=== PATIENT | female | born 1930 | race Caucasian/White ===

== ENCOUNTER 2018-05-15 18:33 | Inpatient (IN) ==
[2018-05-15] MEDS ORDERED: LACTATED RINGERS 500 ML IV ONE (19:12)
[2018-05-15 19:43] LABS: Basophils % 0.2 % (0.0-0.8); Eosinophils # 0.1 10*3/uL (0.0-0.87); Eosinophils % 0.8 % (0.00-10.9); Hemoglobin 14.2 GM/DL (12.0-16.0); Immature Granulocytes % 0.3 %; Immature Granulocytes Absolute 0.03 #; Lymphocytes # 1.2 10*3/uL (1.4-4.0); Lymphocytes % 11.5 % (21.3-54.2); Mean Corpuscular HGB Conc 30.9 GM/DL (32-36); Mean Corpuscular Hemoglobin 32 PG (27-34); Mean Corpuscular Volume 102.9 FL (87-102); Mean Platelet Volume 11.8 FL (9.6-12.0); Monocytes # 0.4 10*3/uL (0.11-0.8); Monocytes % 4.2 % (1.7-12.7); Neutrophils # 8.6 10*3/uL (1.4-7.4); Red Blood Count 4.47 MC/CUMM (3.8-5.5); Red Cell Distribution Width 14.6 % (9.3-17.3); White Blood Count 10.4 T/CUMM (4-12)
[2018-05-15 19:45] LABS: Platelet Count 93 T/CUMM (130-400)
[2018-05-15 19:53] LABS: INR 1.1; PT Patient Result 11.4 SECS; Partial Thromboplastin Time 25.9 SECS (0-40)
[2018-05-15 20:08] LABS: Albumin 2.4 G/DL (3.4-5.0); Calcium 8.6 MG/DL (8.5-10.1); Osmolality,Calculated 345.2 MOS/KG (273-304); Potassium 3.2 MMOL/L (3.5-5.1); Total Protein 5.8 G/DL (6.4-8.3)
[2018-05-15 20:12] LABS: Lactic Acid 2.7 MMOL/L (0.4-2.0); Troponin I Only 0.509 NG/ML (0.00-0.045)
[2018-05-15 20:13] LABS: Apearance,Urine CLOUDY (Clear); Bacteria,Urine Many /HPF (Few); Bilirubin,Urine Negative (Negative); Blood, Urine Moderate mg/dL (Negative); Glucose,Urine (UA) Negative (Negative); Ketones,Urine Negative (Negative); Mucus,Urine Occasional /LPF (Occasional); Nitrite,Urine Negative (Negative); Protein,Urine 30 MG/DL; RBC,Urine 27 /HPF (0-4); Squamous Epithelial Cell,Urine Occasional /HPF (0-10); Urine Color Yellow (Yellow); Urine Specific Gravity 1.015 (1.001-1.035); WBC,Urine 461 /HPF (0-6)
[2018-05-15] MEDS ORDERED: LACTATED RINGERS 1,000 ML IV ONE (20:32)
[2018-05-15] MEDS ORDERED: cefTRIAXone 2,000 MG in SODIUM CHLORIDE 0.9% 100 ML IV STA (20:35)
[2018-05-15 20:36] LABS: Band Neutrophils 8 % (0-10); Lymphocytes 15 % (20-55); Segmented Neutrophils 77 % (50-85); Total Cells Counted 100
[2018-05-15 20:38] LABS: Platelet Estimate Decreased; Polychromasia Few
[2018-05-15] MEDS ORDERED: cefTRIAXone 2,000 MG in SYRINGE 1 EACH IV SCH (23:45)
[2018-05-16] MEDS: POTASSIUM CHLORIDE 20 MEQ/15 ML UDCUP PER TUBE PRN ×2 (04:30→06:39)
[2018-05-16] MEDS: DEXTROSE 5% NACL 0.45% 1,000 ML IV SCH ×3 (04:52→22:13)
[2018-05-16 06:22] LABS: Basophils % 0.1 % (0.0-0.8); Eosinophils # 0.1 10*3/uL (0.0-0.87); Eosinophils % 1.5 % (0.00-10.9); Hematocrit 37.6 VOL% (35.7-47.0); Immature Granulocytes % 0.5 %; Immature Granulocytes Absolute 0.04 #; Lymphocytes % 12.8 % (21.3-54.2); Mean Corpuscular HGB Conc 31.6 GM/DL (32-36); Mean Corpuscular Hemoglobin 31 PG (27-34); Mean Corpuscular Volume 99.2 FL (87-102); Mean Platelet Volume 11.9 FL (9.6-12.0); Monocytes # 0.3 10*3/uL (0.11-0.8); Neutrophils % 81.1 % (38.7-73.9); Red Blood Count 3.79 MC/CUMM (3.8-5.5); Red Cell Distribution Width 14.6 % (9.3-17.3); White Blood Count 7.4 T/CUMM (4-12)
[2018-05-16 06:38] LABS: Hemoglobin 11.9 GM/DL (12.0-16.0)
[2018-05-16 06:39] LABS: Platelet Count 74 T/CUMM (130-400)
[2018-05-16 06:47] LABS: Calcium 8.4 MG/DL (8.5-10.1); Osmolality,Calculated 333.8 MOS/KG (273-304); Potassium 3.6 MMOL/L (3.5-5.1)
[2018-05-16 06:52] LABS: Band Neutrophils 5 % (0-10); Lymphocytes 11 % (20-55); Segmented Neutrophils 81 % (50-85); Total Cells Counted 100
[2018-05-16 06:53] LABS: Hypochromasia Slight; Platelet Estimate Decreased
[2018-05-16] MEDS: ENOXAPARIN 40 MG/0.4 ML SYRINGE SUBCUT SCH (12:11)
[2018-05-16] MEDS: cefTRIAXone 2,000 MG in SYRINGE 1 EACH IV SCH (22:18)
[2018-05-17] MEDS: DEXTROSE 5% NACL 0.45% 1,000 ML IV SCH (05:53)
[2018-05-17 06:22] LABS: Basophils % 0.2 % (0.0-0.8); Eosinophils # 0.2 10*3/uL (0.0-0.87); Eosinophils % 4.1 % (0.00-10.9); Hematocrit 33.5 VOL% (35.7-47.0); Hemoglobin 10.5 GM/DL (12.0-16.0); Immature Granulocytes % 0.4 %; Immature Granulocytes Absolute 0.02 #; Lymphocytes # 0.7 10*3/uL (1.4-4.0); Lymphocytes % 15.4 % (21.3-54.2); Mean Corpuscular HGB Conc 31.3 GM/DL (32-36); Mean Corpuscular Hemoglobin 31 PG (27-34); Mean Corpuscular Volume 100.3 FL (87-102); Mean Platelet Volume 11.8 FL (9.6-12.0); Monocytes # 0.2 10*3/uL (0.11-0.8); Monocytes % 4.3 % (1.7-12.7); Neutrophils # 3.6 10*3/uL (1.4-7.4); Neutrophils % 75.6 % (38.7-73.9); Platelet Count 67 T/CUMM (130-400); Red Blood Count 3.34 MC/CUMM (3.8-5.5); Red Cell Distribution Width 14.4 % (9.3-17.3)
[2018-05-17 06:25] LABS: White Blood Count 4.7 T/CUMM (4-12)
[2018-05-17 06:36] LABS: Calcium 8.3 MG/DL (8.5-10.1); Osmolality,Calculated 322.3 MOS/KG (273-304); Potassium 3.1 MMOL/L (3.5-5.1)
[2018-05-17 06:42] LABS: Band Neutrophils 6 % (0-10); Eosinophils 1 % (0-10); Lymphocytes 19 % (20-55); Segmented Neutrophils 73 % (50-85); Total Cells Counted 100
[2018-05-17 06:43] LABS: Hypochromasia Slight; Macrocytosis Slight; Platelet Estimate Decreased
[2018-05-17] MEDS: POTASSIUM CHLORIDE 20 MEQ/15 ML UDCUP PER TUBE SCH ×4 (09:03→21:09)
[2018-05-17] MEDS: ENOXAPARIN 40 MG/0.4 ML SYRINGE SUBCUT SCH (09:03)
[2018-05-17] MEDS: PANTOPRAZOLE 40 MG VIAL IV SCH (16:27)
[2018-05-17] MEDS: cefTRIAXone 2,000 MG in SYRINGE 1 EACH IV SCH (21:10)
[2018-05-18] MEDS: POTASSIUM CHLORIDE 20 MEQ/15 ML UDCUP PER TUBE SCH (01:21)
[2018-05-18] MEDS ORDERED: POTASSIUM CHLORIDE 20 MEQ/15 ML UDCUP PER TUBE SCH (01:30)
[2018-05-18 05:22] LABS: Basophils % 0.2 % (0.0-0.8); Eosinophils # 0.2 10*3/uL (0.0-0.87); Eosinophils % 3.9 % (0.00-10.9); Hematocrit 34.4 VOL% (35.7-47.0); Hemoglobin 10.7 GM/DL (12.0-16.0); Immature Granulocytes % 0.5 %; Immature Granulocytes Absolute 0.02 #; Lymphocytes # 0.9 10*3/uL (1.4-4.0); Lymphocytes % 19.6 % (21.3-54.2); Mean Corpuscular HGB Conc 31.1 GM/DL (32-36); Mean Corpuscular Hemoglobin 32 PG (27-34); Mean Corpuscular Volume 101.2 FL (87-102); Mean Platelet Volume 12.3 FL (9.6-12.0); Monocytes # 0.3 10*3/uL (0.11-0.8); Monocytes % 6.8 % (1.7-12.7); White Blood Count 4.4 T/CUMM (4-12)
[2018-05-18 05:26] LABS: Calcium 8.1 MG/DL (8.5-10.1); Potassium 3.9 MMOL/L (3.5-5.1)
[2018-05-18 05:38] LABS: Platelet Count 72 T/CUMM (130-400)
[2018-05-18 05:45] LABS: Eosinophils 5 % (0-10); Hypochromasia Slight; Lymphocytes 18 % (20-55); Nucleated Red Blood Cells 1 (0-5); Platelet Estimate Decreased; Segmented Neutrophils 69 % (50-85); Total Cells Counted 100
[2018-05-18 05:46] LABS: Ovalocytes Slight
[2018-05-18 05:47] LABS: Macrocytosis Slight
[2018-05-18] MEDS: DEXTROSE 5% NACL 0.45% 1,000 ML IV SCH ×2 (09:38→19:33)
[2018-05-18] MEDS: ENOXAPARIN 40 MG/0.4 ML SYRINGE SUBCUT SCH (09:39)
[2018-05-18] MEDS: PANTOPRAZOLE 40 MG VIAL IV SCH (09:39)
[2018-05-18] MEDS: cefTRIAXone 2,000 MG in SYRINGE 1 EACH IV SCH (20:10)
[2018-05-19 07:16] LABS: Basophils % 0.2 % (0.0-0.8); Eosinophils # 0.1 10*3/uL (0.0-0.87); Eosinophils % 2.8 % (0.00-10.9); Hematocrit 32.2 VOL% (35.7-47.0); Hemoglobin 10.3 GM/DL (12.0-16.0); Immature Granulocytes % 0.6 %; Immature Granulocytes Absolute 0.03 #; Lymphocytes # 0.9 10*3/uL (1.4-4.0); Lymphocytes % 18.3 % (21.3-54.2); Mean Corpuscular Hemoglobin 31 PG (27-34); Mean Corpuscular Volume 98.2 FL (87-102); Mean Platelet Volume 11.8 FL (9.6-12.0); Monocytes # 0.4 10*3/uL (0.11-0.8); Neutrophils # 3.6 10*3/uL (1.4-7.4); Neutrophils % 71.1 % (38.7-73.9); Red Blood Count 3.28 MC/CUMM (3.8-5.5); Red Cell Distribution Width 13.5 % (9.3-17.3)
[2018-05-19 07:21] LABS: Platelet Count 82 T/CUMM (130-400)
[2018-05-19 07:37] LABS: Macrocytosis Slight; Platelet Estimate Decreased
[2018-05-19 07:47] LABS: Calcium 8.1 MG/DL (8.5-10.1); Osmolality,Calculated 310.2 MOS/KG (273-304); Potassium 3.5 MMOL/L (3.5-5.1); Prealbumin 7.4 MG/DL (20-40)
[2018-05-19] MEDS: DEXTROSE 5% NACL 0.45% 1,000 ML IV SCH ×2 (09:23→20:04)
[2018-05-19] MEDS: ENOXAPARIN 40 MG/0.4 ML SYRINGE SUBCUT SCH (09:23)
[2018-05-19] MEDS: PANTOPRAZOLE 40 MG VIAL IV SCH (09:24)
[2018-05-19 18:58] LABS: Calcium 7.9 MG/DL (8.5-10.1); Osmolality,Calculated 302.9 MOS/KG (273-304); Potassium 3.4 MMOL/L (3.5-5.1)
[2018-05-19 19:36] LABS: Basophils % 0.2 % (0.0-0.8); Eosinophils # 0.1 10*3/uL (0.0-0.87); Eosinophils % 1.7 % (0.00-10.9); Hematocrit 31.2 VOL% (35.7-47.0); Hemoglobin 10.4 GM/DL (12.0-16.0); Immature Granulocytes % 1.1 %; Immature Granulocytes Absolute 0.05 #; Lymphocytes # 0.8 10*3/uL (1.4-4.0); Lymphocytes % 15.9 % (21.3-54.2); Mean Corpuscular HGB Conc 33.3 GM/DL (32-36); Mean Corpuscular Hemoglobin 31 PG (27-34); Mean Corpuscular Volume 93.7 FL (87-102); Mean Platelet Volume 12.1 FL (9.6-12.0); Monocytes # 0.3 10*3/uL (0.11-0.8); Monocytes % 5.9 % (1.7-12.7); Neutrophils # 3.5 10*3/uL (1.4-7.4); Neutrophils % 75.2 % (38.7-73.9); Platelet Count 83 T/CUMM (130-400); Red Blood Count 3.33 MC/CUMM (3.8-5.5); Red Cell Distribution Width 13.4 % (9.3-17.3); White Blood Count 4.7 T/CUMM (4-12)
[2018-05-19] MEDS: cefTRIAXone 2,000 MG in SYRINGE 1 EACH IV SCH (20:04)
[2018-05-20 06:36] LABS: Basophils % 0.4 % (0.0-0.8); Eosinophils # 0.1 10*3/uL (0.0-0.87); Eosinophils % 1.6 % (0.00-10.9); Hematocrit 32.5 VOL% (35.7-47.0); Hemoglobin 10.6 GM/DL (12.0-16.0); Immature Granulocytes % 1.2 %; Immature Granulocytes Absolute 0.06 #; Lymphocytes # 0.9 10*3/uL (1.4-4.0); Lymphocytes % 18.4 % (21.3-54.2); Mean Corpuscular HGB Conc 32.6 GM/DL (32-36); Mean Corpuscular Hemoglobin 31 PG (27-34); Mean Corpuscular Volume 95.9 FL (87-102); Mean Platelet Volume 11.7 FL (9.6-12.0); Monocytes # 0.3 10*3/uL (0.11-0.8); Monocytes % 5.9 % (1.7-12.7); Neutrophils # 3.7 10*3/uL (1.4-7.4); Neutrophils % 72.5 % (38.7-73.9); Red Blood Count 3.39 MC/CUMM (3.8-5.5); Red Cell Distribution Width 13.4 % (9.3-17.3); White Blood Count 5.1 T/CUMM (4-12)
[2018-05-20 06:39] LABS: Platelet Count 88 T/CUMM (130-400)
[2018-05-20 06:58] LABS: Band Neutrophils 1 % (0-10); Eosinophils 2 % (0-10); Lymphocytes 19 % (20-55); Segmented Neutrophils 76 % (50-85); Total Cells Counted 100
[2018-05-20 06:58] LABS: Prealbumin 8.8 MG/DL (20-40)
[2018-05-20 06:59] LABS: Macrocytosis Slight; Platelet Estimate Decreased; Polychromasia Slight
[2018-05-20 07:10] LABS: Calcium 7.8 MG/DL (8.5-10.1); Potassium 3.2 MMOL/L (3.5-5.1)
[2018-05-20] MEDS: ENOXAPARIN 40 MG/0.4 ML SYRINGE SUBCUT SCH (10:54)
[2018-05-20] MEDS: DEXTROSE 5% NACL 0.45% 1,000 ML IV SCH (14:01)
[2018-05-20] MEDS: PANTOPRAZOLE 40 MG VIAL IV SCH (14:02)
[2018-05-20] MEDS: cefTAZidime 1,000 MG in SYRINGE 1 EACH IV SCH (15:30)
[2018-05-20] MEDS: POTASSIUM CHLORIDE RIDER 10 MEQ in PREMIX 1 EACH IV SCH ×4 (15:35→20:19)
[2018-05-21] MEDS: cefTAZidime 1,000 MG in SYRINGE 1 EACH IV SCH ×2 (02:21→15:30)
[2018-05-21 07:09] LABS: Basophils % 0.4 % (0.0-0.8); Eosinophils # 0.1 10*3/uL (0.0-0.87); Eosinophils % 2.1 % (0.00-10.9); Hematocrit 30.1 VOL% (35.7-47.0); Hemoglobin 9.7 GM/DL (12.0-16.0); Immature Granulocytes % 1.9 %; Lymphocytes # 0.9 10*3/uL (1.4-4.0); Lymphocytes % 17.5 % (21.3-54.2); Mean Corpuscular HGB Conc 32.2 GM/DL (32-36); Mean Corpuscular Hemoglobin 31 PG (27-34); Mean Corpuscular Volume 95.9 FL (87-102); Mean Platelet Volume 11.8 FL (9.6-12.0); Monocytes # 0.4 10*3/uL (0.11-0.8); Monocytes % 7.6 % (1.7-12.7); Neutrophils # 3.7 10*3/uL (1.4-7.4); Neutrophils % 70.5 % (38.7-73.9); Platelet Count 101 T/CUMM (130-400); Red Blood Count 3.14 MC/CUMM (3.8-5.5); Red Cell Distribution Width 13.7 % (9.3-17.3); White Blood Count 5.3 T/CUMM (4-12)
[2018-05-21 07:33] LABS: Macrocytosis Slight; Platelet Estimate Decreased
[2018-05-21 07:38] LABS: Calcium 8.1 MG/DL (8.5-10.1); Osmolality,Calculated 290.4 MOS/KG (273-304); Potassium 3.6 MMOL/L (3.5-5.1)
[2018-05-21 07:52] LABS: Calcium 7.9 MG/DL (8.5-10.1); Osmolality,Calculated 288.6 MOS/KG (273-304); Potassium 3.6 MMOL/L (3.5-5.1); Prealbumin 9.3 MG/DL (20-40)
[2018-05-21] MEDS: DEXTROSE 5% NACL 0.45% 1,000 ML IV SCH (09:35)
[2018-05-21] MEDS: PANTOPRAZOLE 40 MG VIAL IV SCH (09:57)
[2018-05-21] MEDS: CITALOPRAM 20 MG TABLET PO SCH (12:06)
[2018-05-21] MEDS: TAMOXIFEN 10 MG TABLET PO SCH (12:07)
[2018-05-21] MEDS: ZINC SULFATE 220 MG CAPSULE PO SCH (12:07)
[2018-05-21] MEDS: ASCORBIC ACID 500 MG TABLET PO SCH (12:07)
[2018-05-21] MEDS: MULTIVITAMIN (CENTRUM) TABLET PO SCH (12:08)
[2018-05-22] MEDS: cefTAZidime 1,000 MG in SYRINGE 1 EACH IV SCH ×2 (02:36→15:05)
[2018-05-22 07:31] LABS: Calcium 8.4 MG/DL (8.5-10.1); Osmolality,Calculated 277.4 MOS/KG (273-304); Potassium 3.6 MMOL/L (3.5-5.1)
[2018-05-22] MEDS: ASCORBIC ACID 500 MG TABLET PO SCH (10:44)
[2018-05-22] MEDS: MULTIVITAMIN (CENTRUM) TABLET PO SCH (10:45)
[2018-05-22] MEDS: CITALOPRAM 20 MG TABLET PO SCH (10:45)
[2018-05-22] MEDS: ZINC SULFATE 220 MG CAPSULE PO SCH (10:45)
[2018-05-22] MEDS: TAMOXIFEN 10 MG TABLET PO SCH (10:46)
[2018-05-22] MEDS: PANTOPRAZOLE 40 MG VIAL IV SCH (10:59)
[2018-05-22] MEDS: RANITIDINE 150 MG/10 ML 30 ML BOTTLE PEG SCH (15:06)
[2018-05-23] MEDS: cefTAZidime 1,000 MG in SYRINGE 1 EACH IV SCH ×2 (02:28→18:39)
[2018-05-23 06:46] LABS: Basophils % 0.4 % (0.0-0.8); Eosinophils # 0.1 10*3/uL (0.0-0.87); Eosinophils % 2.2 % (0.00-10.9); Hematocrit 30.5 VOL% (35.7-47.0); Hemoglobin 10.1 GM/DL (12.0-16.0); Immature Granulocytes % 1.8 %; Lymphocytes % 17.2 % (21.3-54.2); Mean Corpuscular HGB Conc 33.1 GM/DL (32-36); Mean Corpuscular Hemoglobin 31 PG (27-34); Mean Corpuscular Volume 93.8 FL (87-102); Monocytes # 0.4 10*3/uL (0.11-0.8); Monocytes % 6.7 % (1.7-12.7); Neutrophils % 71.7 % (38.7-73.9); Platelet Count 167 T/CUMM (130-400); Red Blood Count 3.25 MC/CUMM (3.8-5.5); Red Cell Distribution Width 13.8 % (9.3-17.3); White Blood Count 5.5 T/CUMM (4-12)
[2018-05-23 07:21] LABS: Calcium 8.4 MG/DL (8.5-10.1); Osmolality,Calculated 278.4 MOS/KG (273-304); Potassium 3.9 MMOL/L (3.5-5.1)
[2018-05-23 07:48] LABS: Macrocytosis 1+; Polychromasia Slight
[2018-05-23] MEDS: CITALOPRAM 20 MG TABLET PO SCH (11:00)
[2018-05-23] MEDS: ZINC SULFATE 220 MG CAPSULE PO SCH (11:00)
[2018-05-23] MEDS: ASCORBIC ACID 500 MG TABLET PO SCH (11:00)
[2018-05-23] MEDS: RANITIDINE 150 MG/10 ML 30 ML BOTTLE PEG SCH (11:06)
[2018-05-23] MEDS: TAMOXIFEN 10 MG TABLET PO SCH (11:10)
[2018-05-23] MEDS: MULTIVITAMIN (CENTRUM) TABLET PO SCH (11:35)
[2018-05-24] MEDS: cefTAZidime 1,000 MG in SYRINGE 1 EACH IV SCH ×2 (03:31→16:58)
[2018-05-24 06:35] LABS: Basophils % 0.2 % (0.0-0.8); Eosinophils # 0.1 10*3/uL (0.0-0.87); Eosinophils % 2.1 % (0.00-10.9); Hematocrit 30.4 VOL% (35.7-47.0); Hemoglobin 10.4 GM/DL (12.0-16.0); Immature Granulocytes % 1.4 %; Immature Granulocytes Absolute 0.08 #; Lymphocytes % 16.7 % (21.3-54.2); Mean Corpuscular HGB Conc 34.2 GM/DL (32-36); Mean Corpuscular Hemoglobin 31 PG (27-34); Mean Corpuscular Volume 91.8 FL (87-102); Mean Platelet Volume 10.8 FL (9.6-12.0); Monocytes # 0.5 10*3/uL (0.11-0.8); Monocytes % 7.9 % (1.7-12.7); Neutrophils # 4.1 10*3/uL (1.4-7.4); Neutrophils % 71.7 % (38.7-73.9); Platelet Count 183 T/CUMM (130-400); Red Blood Count 3.31 MC/CUMM (3.8-5.5); Red Cell Distribution Width 14.3 % (9.3-17.3); White Blood Count 5.7 T/CUMM (4-12)
[2018-05-24 07:06] LABS: Calcium 8.5 MG/DL (8.5-10.1); Osmolality,Calculated 273.7 MOS/KG (273-304); Potassium 3.8 MMOL/L (3.5-5.1)
[2018-05-24] MEDS: CITALOPRAM 20 MG TABLET PO SCH (08:53)
[2018-05-24] MEDS: TAMOXIFEN 10 MG TABLET PO SCH (08:53)
[2018-05-24] MEDS: MULTIVITAMIN (CENTRUM) TABLET PO SCH (08:53)
[2018-05-24] MEDS: ASCORBIC ACID 500 MG TABLET PO SCH (08:54)
[2018-05-24] MEDS: ZINC SULFATE 220 MG CAPSULE PO SCH (08:54)
[2018-05-24 12:59] LABS: Hypochromasia 1+
[2018-05-24] MEDS: RANITIDINE 150 MG/10 ML 30 ML BOTTLE PEG SCH (16:57)
[2018-05-25] MEDS: cefTAZidime 1,000 MG in SYRINGE 1 EACH IV SCH (05:08)
[2018-05-25 08:29] LABS: Calcium 8.4 MG/DL (8.5-10.1); Osmolality,Calculated 272.8 MOS/KG (273-304); Potassium 3.4 MMOL/L (3.5-5.1); Prealbumin 15.6 MG/DL (20-40)
[2018-05-25] MEDS: TAMOXIFEN 10 MG TABLET PO SCH (09:55)
[2018-05-25] MEDS: CITALOPRAM 20 MG TABLET PO SCH (09:55)
[2018-05-25] MEDS: MULTIVITAMIN (CENTRUM) TABLET PO SCH (09:55)
[2018-05-25] MEDS: ZINC SULFATE 220 MG CAPSULE PO SCH (09:56)
[2018-05-25] MEDS: ASCORBIC ACID 500 MG TABLET PO SCH (09:56)
[2018-05-25] MEDS: RANITIDINE 150 MG/10 ML 30 ML BOTTLE PEG SCH (10:59)
[2018-05-25] MEDS ORDERED: POTASSIUM CHLORIDE 20 MEQ/15 ML UDCUP PER TUBE PRN (11:41)
[2018-05-25 12:38] VITALS: BP 99/53
== END 2018-05-25 14:58 | DRG 872 ==
LOC: EDUNIT# → EDBD → N.ED 18:33 → N.EDINP 22:42 → SUATTDRO 22:42 → N.5E 23:26
PROVIDERS: ATTEND Internal Medicine Geriatric Medicine